=== PATIENT | male | born 2000 | race Hispanic/Latino ===

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

== ENCOUNTER 2025-07-04 00:19 | Emergency (ER) | payer SELFPAY ==
[2025-07-04 01:30] LABS: #Basophils Less than 0.03 10x3/uL (0.0-0.2); #Eosinophils 0.04 10x3/uL (0.0-0.7); #Monocytes 0.39 10x3/uL (0.11-0.59); #Neutrophils 9.39 10x3/uL (1.40-6.50); %Basophils 0.2 % (0.0-1.0); %Eosinophils 0.3 % (0.0-10.0); %Lymphocytes 20.2 % (21.0-51.0); %Monocytes 3.1 % (0.0-10.0); %Neutrophils 75.8 % (42.0-75.0); Hematocrit 42.7 % (42.0-52.0); Hemoglobin 14.3 g/dL (14.0-18.0); Mean Corpuscular Hemoglobin 30.5 pg (27.0-31.0); Mean Corpuscular Volume 91.0 fL (78.0-98.0); Platelet Count 238 10x3/uL (130-400); Red Blood Cell (RBC) Count 4.69 mill/uL (4.70-6.10); White Blood Cell (WBC) Count 12.39 10x3/uL (4.8-10.8)
[2025-07-04 01:42] LABS: Lipase 11 U/L (8-78)
[2025-07-04 01:45] LABS: Acetaminophen Less than 10 mcg/mL (Less than 10); Salicylate Less than 8.0 mg/dL (Less than 8.0)
[2025-07-04 01:46] LABS: ALT (SGPT) 12 U/L (Less than 45); AST (SGOT) 17 U/L (11-34); Albumin 4.3 g/dL (3.1-4.5); Alkaline Phosphatase 61 U/L (40-110); Anion Gap 16 mmol/L (10-20); BUN (Urea Nitrogen) 11 mg/dL (8.9-20.6); Bilirubin, Total 0.4 mg/dL (0.3-1.2); Calc. Creatinine Clearance 0 mL/min (70-130); Calcium 8.9 mg/dL (7.8-10.44); Carbon Dioxide 23 mmol/L (22-29); Chloride 107 mmol/L (98-107); Globulin 2.3 g/dL (2.4-3.5); Glucose 112 mg/dL (70-105); Potassium 3.3 mmol/L (3.5-5.1); Sodium 143 mmol/L (136-145)
[2025-07-04 06:03] LABS: Acetaminophen Less than 10 mcg/mL (Less than 10); Salicylate Less than 8.0 mg/dL (Less than 8.0)
[2025-07-04] MEDS ORDERED: Iopamidol-370 76% 500 ML MDV (1 ML CHARGE) ONE (11:32)
== END 2025-07-04 06:39 | disposition home or self-care (01) ==
LOC: ERS 00:19
DX: S05.12XA Contusion of eyeball and orbital tissues, left eye, initial encounter (principal); S05.11XA Contusion of eyeball and orbital tissues, right eye, initial encounter; F10.129 Alcohol abuse with intoxication, unspecified; Z23 Encounter for immunization; Y04.8XXA Assault by other bodily force, initial encounter
CPT/HCPCS: 70450; 70486; 71260; 72125; 74177; 80053; 80307; 83690; 85025; 90471; 90715; Q9967